=== PATIENT | female | born 1980 | race Caucasian/White ===

== ENCOUNTER 2023-02-15 18:46 | Emergency (ER) | payer MEDICAID ==
[~2023-02-15] VITALS: Ht 176.5 cm; Wt 72.4 kg
[~2023-02-15 18:46] MED LIST: AMIT-311 PO; POTA8TAB46 PO; PROM25TA14 PO
--- NOTE | 2023-02-15 19:30 | NUR ---
i AGREE WITH LVNS ASSESSMENT.
[2023-02-15 20:00] LABS: EOSINOPHILS # (AUTO) 0.4 X10'3 (0-0.9); HEMOGLOBIN 13.7 g/dl (12.0-16.0); MEAN PLATELET VOLUME 6.9 FL (7.4-10.4); RED CELL DISTRIBUTION WIDTH 12.5 % (11.5-14.5)
[2023-02-15 20:01] LABS: BASOPHILS # (AUTO) 0.1 X10'3 (0-0.2); BASOPHILS % (AUTO) 0.7 % (0-1); EOSINOPHILS % (AUTO) 4.2 % (0-6); HEMATOCRIT 40.1 % (35.0-45.0); LYMPHOCYTES # (AUTO) 2.1 X10'3 (1.1-4.8); LYMPHOCYTES % (AUTO) 24.3 % (21-51); MEAN CORPUSCULAR HEMOGLOBIN 32.5 PG (27.0-31.0); MEAN CORPUSCULAR HGB CONC 34.1 g/dL (33.0-36.5); MEAN CORPUSCULAR VOLUME 95.3 FL (78-98); MONOCYTES # (AUTO) 0.8 X10'3 (0-0.9); MONOCYTES % (AUTO) 8.9 % (2-12); NEUTROPHILS # (AUTO) 5.4 X10'3 (1.8-7.7); NEUTROPHILS % (AUTO) 61.9 % (42-75); PLATELET COUNT 467 X10'3 (140-440); WHITE BLOOD COUNT 8.7 X10'3 (4.5-11.0)
[2023-02-15 20:08] LABS: D-DIMER 0.29 MG/L FEU (0-0.50)
[2023-02-15 20:11] LABS: ALANINE AMINOTRANSFERASE 23 U/L (12-78); ALBUMIN 3.9 G/DL (3.4-5.0); ALBUMIN/GLOBULIN RATIO 1.1 (1.1-1.5); ALKALINE PHOSPHATASE 79 IU/L (46-116); ANION GAP 6 (8-16); ASPARTATE AMINO TRANSFERASE 17 U/L (10-37); BILIRUBIN,TOTAL 0.2 MG/DL (0.1-1.0); BLOOD UREA NITROGEN 9 MG/DL (7-18); BUN/CREATININE RATIO 10.8 (10.0-20.0); CALCIUM 8.7 MG/DL (8.5-10.1); CHLORIDE 103 MMOL/L (99-107); CREATININE 0.83 MG/DL (0.40-0.90); GLUCOSE 95 MG/DL (70-104); POTASSIUM 3.3 MMOL/L (3.5-5.1); SODIUM 138 MMOL/L (135-145); TOTAL CARBON DIOXIDE 28.7 MMOL/L (24-32); TOTAL PROTEIN 7.5 G/DL (6.4-8.2); eCRCL 96 ML/MIN; eGFR 76 ML/MIN
[2023-02-15 20:15] LABS: BILIRUBIN,URINE NEGATIVE (Neg); CLARITY,URINE SLIGHTLY CLOUDY (Clear); COLOR,URINE YELLOW (Yellow); GLUCOSE, URINE NEGATIVE (Neg); KETONES,URINE NEGATIVE (Neg); LEUKOCYTE ESTERASE ,URINE NEGATIVE (Neg); NITRITES, URINE NEGATIVE (Neg); OCCULT BLOOD,URINE SMALL (Neg); PROTEIN,URINE NEGATIVE (Neg); UROBILINOGEN,URINE 0.2 E.U/dL (0.2-1.0)
[2023-02-15] MEDS ORDERED: cyclobenzaprine 10mg tablet PO ONE (20:15)
[2023-02-15 20:18] LABS: PRO BRAIN NATRIURETIC PEPTIDE 266 PG/ML (0-125)
[2023-02-15] MEDS ORDERED: CYCL-1 PO ×2 (20:22)
[2023-02-15 20:29] LABS: UA COLLECTION TYPE NON-SPECIFIED
[2023-02-15 20:33] LABS: BACTERIA,URINE FEW /HPF (Neg); MUCUS STRANDS NONE SEEN /LPF (Neg); RBC,URINE 0-2 /HPF (0-2); SQUAMOUS EPITHELIAL CELL,UR MODERATE /LPF (FEW); WBC,URINE 0-4 /HPF (0-4)
[2023-02-15] MEDS ORDERED: potassium Cl 20 mEq SR tablet PO ONE (20:45)
[2023-02-15 21:02] VITALS: BP 138/78; PULSE 81; RESP 16; TEMP 99.4; O2SAT 100
== END 2023-02-15 21:43 | disposition home or self-care (01) ==
LOC: ER 18:47
DX: S29.012A Strain of muscle and tendon of back wall of thorax, initial encounter (principal); E87.6 Hypokalemia; Z88.0 Allergy status to penicillin; Z88.6 Allergy status to analgesic agent; Z88.2 Allergy status to sulfonamides; Z88.8 Allergy status to other drugs, medicaments and biological substances; Z79.899 Other long term (current) drug therapy; Z98.51 Tubal ligation status; X58.XXXA Exposure to other specified factors, initial encounter; Y93.89 Activity, other specified; Y92.89 Other specified places as the place of occurrence of the external cause; Y99.8 Other external cause status
CPT/HCPCS: 71045; 80053; 81001; 83880; 85025; 85379; 93005; 99285

== ENCOUNTER 2023-02-22 15:00 | Inpatient (IN) | payer MEDICAID ==
[~2023-02-22] VITALS: Ht 175.3 cm; Wt 70.5 kg
[~2023-02-22 15:00] MED LIST changes: +CYCL-1 PO
[2023-02-22 15:25] LABS: BASOPHILS # (AUTO) 0.1 X10'3 (0-0.2); BASOPHILS % (AUTO) 0.8 % (0-1); EOSINOPHILS # (AUTO) 0.4 X10'3 (0-0.9); EOSINOPHILS % (AUTO) 4.7 % (0-6); HEMATOCRIT 41.4 % (35.0-45.0); LYMPHOCYTES # (AUTO) 1.5 X10'3 (1.1-4.8); LYMPHOCYTES % (AUTO) 19.8 % (21-51); MEAN CORPUSCULAR HEMOGLOBIN 32.4 PG (27.0-31.0); MEAN CORPUSCULAR HGB CONC 33.7 g/dL (33.0-36.5); MEAN PLATELET VOLUME 7.1 FL (7.4-10.4); MONOCYTES # (AUTO) 0.5 X10'3 (0-0.9); MONOCYTES % (AUTO) 7.3 % (2-12); NEUTROPHILS % (AUTO) 67.4 % (42-75); PLATELET COUNT 442 X10'3 (140-440); RED BLOOD COUNT 4.32 X10'6 (4.20-5.60); RED CELL DISTRIBUTION WIDTH 12.5 % (11.5-14.5); WHITE BLOOD COUNT 7.5 X10'3 (4.5-11.0)
[2023-02-22 15:47] LABS: ALANINE AMINOTRANSFERASE 36 U/L (12-78); ALBUMIN 3.7 G/DL (3.4-5.0); ALKALINE PHOSPHATASE 93 IU/L (46-116); ANION GAP 3 (8-16); ASPARTATE AMINO TRANSFERASE 25 U/L (10-37); BILIRUBIN,TOTAL 0.4 MG/DL (0.1-1.0); BLOOD UREA NITROGEN 12 MG/DL (7-18); CALCIUM 9.1 MG/DL (8.5-10.1); CHLORIDE 105 MMOL/L (99-107); CREATININE 0.86 MG/DL (0.40-0.90); GLUCOSE 111 MG/DL (70-104); POTASSIUM 3.9 MMOL/L (3.5-5.1); PRO BRAIN NATRIURETIC PEPTIDE 351 PG/ML (0-125); SODIUM 137 MMOL/L (135-145); TOTAL CARBON DIOXIDE 28.6 MMOL/L (24-32); TOTAL PROTEIN 7.5 G/DL (6.4-8.2); eCRCL 91 ML/MIN; eGFR 73 ML/MIN
[2023-02-22] MEDS ORDERED: temazepam 15mg capsule PO PRN (21:00)
[2023-02-22] MEDS ORDERED: nitroGLYCERIN 0.4mg/hour patch TD ONE (21:30)
[2023-02-22 22:04] LABS: BASOPHILS # (AUTO) 0.1 X10'3 (0-0.2); BASOPHILS % (AUTO) 0.8 % (0-1); EOSINOPHILS # (AUTO) 0.3 X10'3 (0-0.9); HEMATOCRIT 39.3 % (35.0-45.0); HEMOGLOBIN 13.6 g/dl (12.0-16.0); LYMPHOCYTES # (AUTO) 2.3 X10'3 (1.1-4.8); LYMPHOCYTES % (AUTO) 22.5 % (21-51); MEAN CORPUSCULAR HEMOGLOBIN 32.7 PG (27.0-31.0); MEAN CORPUSCULAR HGB CONC 34.5 g/dL (33.0-36.5); MEAN CORPUSCULAR VOLUME 94.8 FL (78-98); MEAN PLATELET VOLUME 6.7 FL (7.4-10.4); MONOCYTES # (AUTO) 0.6 X10'3 (0-0.9); MONOCYTES % (AUTO) 6.1 % (2-12); NEUTROPHILS % (AUTO) 67.6 % (42-75); PLATELET COUNT 423 X10'3 (140-440); RED BLOOD COUNT 4.15 X10'6 (4.20-5.60); RED CELL DISTRIBUTION WIDTH 12.4 % (11.5-14.5); WHITE BLOOD COUNT 10.4 X10'3 (4.5-11.0)
--- NOTE | 2023-02-22 22:07 | NUR ---
Nitro patch applied to the L shoulder. Pt made aware to remove patch after 12 hrs.
[2023-02-22 22:11] LABS: D-DIMER 0.22 MG/L FEU (0-0.50)
[2023-02-22 22:20] LABS: ALANINE AMINOTRANSFERASE 38 U/L (12-78); ALBUMIN 3.7 G/DL (3.4-5.0); ALBUMIN/GLOBULIN RATIO 1.1 (1.1-1.5); ALKALINE PHOSPHATASE 84 IU/L (46-116); ANION GAP 5 (8-16); ASPARTATE AMINO TRANSFERASE 24 U/L (10-37); BILIRUBIN,TOTAL 0.4 MG/DL (0.1-1.0); BLOOD UREA NITROGEN 12 MG/DL (7-18); BUN/CREATININE RATIO 15.4 (10.0-20.0); CALCIUM 9.2 MG/DL (8.5-10.1); CHLORIDE 105 MMOL/L (99-107); CREATININE 0.78 MG/DL (0.40-0.90); GLUCOSE 106 MG/DL (70-104); POTASSIUM 3.8 MMOL/L (3.5-5.1); SODIUM 139 MMOL/L (135-145); TOTAL CARBON DIOXIDE 29.3 MMOL/L (24-32); TOTAL PROTEIN 7.2 G/DL (6.4-8.2); eCRCL 100 ML/MIN; eGFR 82 ML/MIN
[2023-02-22 22:24] LABS: MAGNESIUM 2.3 MG/DL (1.5-2.4); PRO BRAIN NATRIURETIC PEPTIDE 316 PG/ML (0-125)
[2023-02-22] MEDS ORDERED: ondansetron 4mg rapidly disintigrating tab PO PRN (22:25)
[2023-02-22] MEDS ORDERED: magnesium hydroxide 30ml (MOM) UD suspension PO PRN (22:25)
[2023-02-22] MEDS ORDERED: morphine 2 MG/ML inj. syringe IV PRN (22:25)
[2023-02-22] MEDS ORDERED: metoclopramide 5 mg/ml inj IV PRN (22:25)
[2023-02-22] MEDS ORDERED: diphenhydrAMINE 50 mg/ml inj IV PRN (22:25)
[2023-02-22] MEDS ORDERED: bisacodyl 10mg suppository rectal RC PRN (22:25)
[2023-02-22] MEDS ORDERED: mag hydrox/Alum hydrox/simeth 30ml oral suspension PO PRN (22:25)
[2023-02-22] MEDS ORDERED: ondansetron/PF 4mg/2ml inj IV PRN (22:25)
[2023-02-22] MEDS: normal saline 1000ml 1,000 ML IV SCH (22:25)
[2023-02-22] MEDS ORDERED: acetaminophen 325mg tablet PO PRN (22:25)
[2023-02-22] MEDS ORDERED: diphenhydrAMINE 25mg capsule PO PRN (22:25)
[2023-02-22] MEDS ORDERED: regadenoson 0.4mg/5ml syringe IV PRN (22:40)
[2023-02-22] MEDS ORDERED: nitroGLYCERIN 0.4mg SUBLingual tab SL PRN (22:40)
[2023-02-22] MEDS ORDERED: metoprolol tartrate 1mg/ml inj IV PRN (22:40)
[2023-02-22] MEDS ORDERED: aminophylline 250mg/10ml inj. IV PRN (22:40)
[2023-02-22 22:57] LABS: APTT 28 SECONDS (22-32); PROTHROMBIN TIME 10.7 SECONDS (9.0-12.0)
[2023-02-22 23:04] LABS: HEMOGLOBIN A1C 4.6 % (4.5-6.2)
[2023-02-22 23:07] LABS: ETHANOL < 10 MG/DL (<10); PHOSPHORUS 2.7 MG/DL (2.3-4.5); THYROID STIMULATING HORMONE 1.54 ulU/ml (0.34-4.50)
[2023-02-22 23:09] LABS: LIPASE 41 U/L (16-77)
[2023-02-22] MEDS: clopidogrel 75mg tablet PO SCH (23:28)
[2023-02-23] VITALS (8 sets, daily range): BP systolic 127–150; BP diastolic 74–96; PULSE 75–111; RESP 15–18; TEMP 98.7; O2SAT 99
[2023-02-23 00:02] LABS: URINE AMPHETAMINE SCREEN NEGATIVE (Neg); URINE BARBITUATE SCREEN NEGATIVE (Neg); URINE BENZODIAZEPINES SCREEN NEGATIVE (Neg); URINE CANNABINOID SCREEN POSITIVE (Neg); URINE COCAINE SCREEN NEGATIVE (Neg); URINE OPIATE SCREEN NEGATIVE (Neg); URINE PHENCYCLIDINE SCREEN NEGATIVE (Neg)
[2023-02-23] MEDS: HYDROcodone/acetaminophen 5mg/325mg tablet PO PRN ×2 (03:32→11:17)
[2023-02-23 04:13] LABS: BASOPHILS # (AUTO) 0.1 X10'3 (0-0.2); BASOPHILS % (AUTO) 0.7 % (0-1); EOSINOPHILS # (AUTO) 0.3 X10'3 (0-0.9); EOSINOPHILS % (AUTO) 3.4 % (0-6); HEMATOCRIT 34.9 % (35.0-45.0); HEMOGLOBIN 12.1 g/dl (12.0-16.0); LYMPHOCYTES # (AUTO) 2.2 X10'3 (1.1-4.8); LYMPHOCYTES % (AUTO) 25.2 % (21-51); MEAN CORPUSCULAR HEMOGLOBIN 32.7 PG (27.0-31.0); MEAN CORPUSCULAR HGB CONC 34.7 g/dL (33.0-36.5); MEAN CORPUSCULAR VOLUME 94.4 FL (78-98); MEAN PLATELET VOLUME 6.7 FL (7.4-10.4); MONOCYTES # (AUTO) 0.7 X10'3 (0-0.9); MONOCYTES % (AUTO) 8.1 % (2-12); NEUTROPHILS # (AUTO) 5.5 X10'3 (1.8-7.7); NEUTROPHILS % (AUTO) 62.6 % (42-75); PLATELET COUNT 373 X10'3 (140-440); RED CELL DISTRIBUTION WIDTH 12.4 % (11.5-14.5); WHITE BLOOD COUNT 8.8 X10'3 (4.5-11.0)
[2023-02-23 04:29] LABS: ALANINE AMINOTRANSFERASE 32 U/L (12-78); ALBUMIN 3.1 G/DL (3.4-5.0); ALKALINE PHOSPHATASE 69 IU/L (46-116); ANION GAP 6 (8-16); ASPARTATE AMINO TRANSFERASE 23 U/L (10-37); BILIRUBIN,TOTAL 0.4 MG/DL (0.1-1.0); BLOOD UREA NITROGEN 10 MG/DL (7-18); CALCIUM 8.3 MG/DL (8.5-10.1); CHLORIDE 105 MMOL/L (99-107); CHOL/HDL RATIO 2.6 (0.00-4.99); CHOLESTEROL 100 MG/DL (0-200); CREATININE 0.77 MG/DL (0.40-0.90); GLUCOSE 100 MG/DL (70-104); HDL CHOLESTEROL 38 MG/DL (35-60); LDL CHOLESTEROL 49 MG/DL (50-100); POTASSIUM 3.4 MMOL/L (3.5-5.1); SODIUM 139 MMOL/L (135-145); TOTAL CARBON DIOXIDE 28.4 MMOL/L (24-32); TOTAL PROTEIN 6.2 G/DL (6.4-8.2); TRIGLYCERIDES 49 MG/DL (20-135); eCRCL 102 ML/MIN; eGFR 83 ML/MIN
--- NOTE | 2023-02-23 07:01 | NUR ---
RECEIVED REPORT FROM GRECIA STEVENS AT 0630 ASSUMED CARE OF PT NITRO PATCH REMOVED D/T PT SCHEDULED FOR STRESS TEST THIS AM PT CONTINUES TO C/O OF [place] BEHIND R EYE AND BASE OF SKULL 11/13 LUPE GAVE SOME RELIEF PLAN OF CARE DISCUSSED W PT ALL QUESTIONS AND CONCERNS ADDRESSED TO PT'S VERBAL SATISFACTION
[2023-02-23] MEDS ORDERED: pantoprazole 40mg Tablet.DR PO SCH ×2 (07:30)
[2023-02-23] MEDS: clopidogrel 75mg tablet PO SCH (07:40)
[2023-02-23] MEDS ORDERED: docusate sod 100mg capsule PO SCH (08:00)
[2023-02-23] MEDS ORDERED: nitroGLYCERIN 0.1mg/hour patch TD SCH (08:00)
[2023-02-23] MEDS ORDERED: heparin, porcine 5000 units/ml vial SQ SCH (08:00)
--- NOTE | 2023-02-23 09:27 | NUR ---
PT TO NUC MED ON MONITOR WITH RN FOR STRESS TEST, PT ABLE TO TRANSFER SELF WITHOUT ASSIST.
[2023-02-23] MEDS ORDERED: VALS80TA32 PO (10:04)
[2023-02-23] MEDS ORDERED: ATOR20TA PO (10:04)
[2023-02-23] MEDS ORDERED: AMLO2.5T2 PO (10:04)
[2023-02-23] MEDS ORDERED: METO-384 PO (10:04)
[2023-02-23] MEDS ORDERED: AMIT50TA15 PO (10:04)
[2023-02-23] MEDS ORDERED: POTA8TAB69 PO (10:05)
--- NOTE | 2023-02-23 10:44 | NUR ---
pt back to room 10 from nuc med stress test, report to Danielle STEVENS
--- NOTE | 2023-02-23 10:44 | NUR ---
pt returned from stress test via gurney tolerated procedure well
[2023-02-23] MEDS: normal saline 1000ml 1,000 ML IV SCH ×2 (11:15→11:18)
--- NOTE | 2023-02-23 11:43 | NUR ---
PAGER ID: [phone] MESSAGE: Dylon Bro T in ER rm 10 1. stress test results are back. 2. med rec is complete. Erika hills
== END 2023-02-23 16:40 | disposition home or self-care (01) | DRG 198 ==
LOC: ER 15:01 → ED HOLD 22:29
PROVIDERS: ADMIT Family Medicine; ATTEND Internal Medicine
PROC: 4A02XM4 Measurement of Cardiac Total Activity, External Approach (ICD-10-PCS; principal; 2023-02-23)
PROC: 3E033HZ Introduction of Radioactive Substance into Peripheral Vein, Percutaneous Approach (ICD-10-PCS; 2023-02-23)
DX: I20.0 Unstable angina (principal); I11.0 Hypertensive heart disease with heart failure; I50.32 Chronic diastolic (congestive) heart failure; E78.5 Hyperlipidemia, unspecified; F17.210 Nicotine dependence, cigarettes, uncomplicated; Z88.0 Allergy status to penicillin; Z88.2 Allergy status to sulfonamides; Z88.6 Allergy status to analgesic agent; Z88.3 Allergy status to other anti-infective agents; Z98.51 Tubal ligation status
CPT/HCPCS: 36415; 71045; 78452; 80053; 80061; 80305; 80320; 83036; 83690; 83735; 83880; 84100; 84443; 84484; 85025; 85379; 85610; 85730; 93017; 99285; A9500; G0378; J1644; J2270; J2785; J7030

== ENCOUNTER 2024-06-19 19:20 | Emergency (ER) | payer MEDICAID ==
[~2024-06-19] VITALS: Ht 175.3 cm; Wt 68.5 kg
[~2024-06-19 19:20] MED LIST changes: -AMIT-311 PO; +AMIT50TA15 PO; +AMLO2.5T2 PO; +ATOR20TA PO; -CYCL-1 PO; +METO-384 PO; -POTA8TAB46 PO; +POTA8TAB69 PO; -PROM25TA14 PO; +VALS80TA32 PO
[2024-06-19 19:29] VITALS: TEMP 98.8
[2024-06-19 20:06] LABS: BASOPHILS # (AUTO) 0.1 X10'3 (0-0.2); BASOPHILS % (AUTO) 0.3 % (0-1); EOSINOPHILS # (AUTO) 0.2 X10'3 (0-0.9); HEMATOCRIT 40.6 % (35.0-45.0); HEMOGLOBIN 14.2 g/dl (12.0-16.0); LYMPHOCYTES # (AUTO) 1.1 X10'3 (1.1-4.8); MEAN CORPUSCULAR HEMOGLOBIN 33.7 PG (27.0-31.0); MEAN CORPUSCULAR VOLUME 96.4 FL (78-98); MEAN PLATELET VOLUME 6.7 FL (7.4-10.4); MONOCYTES # (AUTO) 1.2 X10'3 (0-0.9); MONOCYTES % (AUTO) 5.7 % (2-12); NEUTROPHILS # (AUTO) 18.6 X10'3 (1.8-7.7); PLATELET COUNT 424 X10'3 (140-440); RED BLOOD COUNT 4.21 X10'6 (4.20-5.60); RED CELL DISTRIBUTION WIDTH 12.8 % (11.5-14.5); WHITE BLOOD COUNT 21.1 X10'3 (4.5-11.0)
[2024-06-19 20:08] LABS: URINE HCG NEGATIVE (NEG)
[2024-06-19 20:10] LABS: BILIRUBIN,URINE NEGATIVE (Neg); CLARITY,URINE CLEAR (Clear); COLOR,URINE YELLOW (Yellow); GLUCOSE, URINE NEGATIVE (Neg); KETONES,URINE NEGATIVE (Neg); LEUKOCYTE ESTERASE ,URINE NEGATIVE (Neg); NITRITES, URINE NEGATIVE (Neg); OCCULT BLOOD,URINE TRACE-INTACT (Neg); PH,URINE 6.5 (4.8-8.0); PROTEIN,URINE NEGATIVE (Neg); UROBILINOGEN,URINE 0.2 E.U/dL (0.2-1.0)
[2024-06-19 20:22] LABS: ALANINE AMINOTRANSFERASE 33 U/L (12-78); ALBUMIN 3.9 G/DL (3.4-5.0); ALKALINE PHOSPHATASE 79 IU/L (46-116); ANION GAP 7 (8-16); ASPARTATE AMINO TRANSFERASE 19 U/L (10-37); BILIRUBIN,TOTAL 0.5 MG/DL (0.1-1.0); BLOOD UREA NITROGEN 15 MG/DL (7-18); CHLORIDE 104 MMOL/L (99-107); CREATININE 0.75 MG/DL (0.40-0.90); GLUCOSE 108 MG/DL (70-104); LIPASE 34 U/L (16-77); POTASSIUM 3.4 MMOL/L (3.5-5.1); SODIUM 140 MMOL/L (135-145); TOTAL CARBON DIOXIDE 29.1 MMOL/L (24-32); TOTAL PROTEIN 7.8 G/DL (6.4-8.2); eCRCL 103 ML/MIN; eGFR 85 ML/MIN
[2024-06-19 20:24] LABS: UA COLLECTION TYPE CLN CATCH MIDSTREAM
[2024-06-19 20:25] LABS: AMORPHOUS URATES 1+; BACTERIA,URINE 1+ /HPF (Neg); RBC,URINE 0-2 /HPF (0-2); SQUAMOUS EPITHELIAL CELL,UR MODERATE /LPF (FEW); WBC,URINE 0-4 /HPF (0-4)
[2024-06-19] MEDS: normal saline 1000ml 1,000 ML IV ONE (22:36)
[2024-06-19] MEDS: morphine 4 MG/ML inj SYRINge IV ONE (22:36)
[2024-06-19] MEDS: ondansetron/PF 4mg/2ml inj IV ONE (22:36)
[2024-06-19] MEDS: proCHLORperazine 10 MG/2 ml inj IV ONE (23:49)
[2024-06-19] MEDS: diphenhydrAMINE 50 mg/ml inj IV ONE (23:50)
[2024-06-20] MEDS: morphine 4 MG/ML inj SYRINge IV ONE (00:31)
[2024-06-20] MEDS ORDERED: ONDA-245 PO (02:11)
[2024-06-20] MEDS ORDERED: HYDR-3965 PO (02:11)
[2024-06-20 02:19] VITALS: BP 147/93; PULSE 76; RESP 16; O2SAT 99
== END 2024-06-20 02:20 | disposition home or self-care (01) ==
LOC: ER 19:20
DX: R10.11 Right upper quadrant pain (principal); I10 Essential (primary) hypertension; Z88.0 Allergy status to penicillin; Z88.6 Allergy status to analgesic agent; Z88.2 Allergy status to sulfonamides; Z88.8 Allergy status to other drugs, medicaments and biological substances; Z98.51 Tubal ligation status; Z79.899 Other long term (current) drug therapy
CPT/HCPCS: 36415; 74176; 76700; 80053; 81001; 81025; 83690; 84145; 85025; 93005; 96361; 96374; 96375; 96376; 99285; J0780; J1200; J2270; J2405; J7030

== ENCOUNTER 2024-12-24 17:04 | Emergency (ER) | payer MEDICARE, MEDICAID ==
[~2024-12-24] VITALS: Ht 175.3 cm; Wt 65.1 kg
[~2024-12-24 17:04] MED LIST changes: +ONDA-245 PO
[2024-12-24 17:13] VITALS: TEMP 97.6
[2024-12-24 18:18] LABS: MEAN PLATELET VOLUME 6.7 FL (7.4-10.4); RED CELL DISTRIBUTION WIDTH 12.8 % (11.5-14.5)
[2024-12-24 18:34] LABS: CREATININE 0.79 MG/DL (0.40-0.90); TOTAL CARBON DIOXIDE 31.8 MMOL/L (24-32); eCRCL 95 ML/MIN; eGFR 80 ML/MIN
[2024-12-24 19:23] LABS: URINE HCG NEGATIVE (NEG)
[2024-12-24 19:31] LABS: LEUKOCYTE ESTERASE ,URINE NEGATIVE (Neg); NITRITES, URINE NEGATIVE (Neg); OCCULT BLOOD,URINE SMALL (Neg)
[2024-12-24 19:35] LABS: UA COLLECTION TYPE CLN CATCH MIDSTREAM
[2024-12-24 19:48] LABS: MUCUS STRANDS MODERATE /LPF (Neg); SQUAMOUS EPITHELIAL CELL,UR FEW /LPF (FEW)
--- NOTE | 2024-12-24 19:54 | RADIOLOGY REPORT ---
EXAM: US ULTRASOUND OF ABDOMEN HISTORY: Abdominal pain, persistent lower abdominal cramping COMPARISON: CT CT ABDOMEN PELVIS on DOS: 06/20/24, US ULTRASOUND OF ABDOMEN on DOS: 06/19/24 TECHNIQUE: Real-time grayscale and color flow images of the abdomen were obtained. FINDINGS: LIVER: Liver measures 17.2 cm craniocaudal. Liver parenchyma is homogeneous in echotexture. No focal lesion is identified. No intrahepatic ductal dilatation. Normal directional flow is seen in the por sylvester vein. GALLBLADDER: No gallstones. No gallbladder wall edema or pericholecystic fluid. Gallbladder wall thi ckness is 2 mm. No sonographic banegas sign. COMMON BILE DUCT: 3 mm in caliber. SPLEEN: The spleen measures 10.3 cm. No focal lesion is identified. PANCREAS: Visualized portions are unremarkable. KIDNEYS: The right kidney measures 10.1 cm in length. The left kidney measures 11.4 cm in lengt h. No hydronephrosis noted bilaterally. No suspicious renal lesions. No sonographic evidence of ca lculi. AORTA, IVC: Visualized portions are unremarkable. OTHER: None. IMPRESSION: 1. No acute sonographic abnormality identified.
--- NOTE | 2024-12-24 19:58 | RADIOLOGY REPORT ---
Procedure: US ULTRASOUND PELVIS W/ORWO DPLX [facility] Study Date and Requested Time: 12/24/2024 07:00 PM Study Description: US ULTRASOUND PELVIS W/ORWO DPLX History: pain, persistent lower abdominal cramping Comparison: CT CT ABDOMEN PELVIS on DOS: 06/20/24, US ULTRASOUND OF ABDOMEN on DOS: 06/19/24 Technique: Multiple transabdominal and transvaginal high resolution de leon-scale images obtained of the uterus and adnexa with color Doppler for evaluation of adnexal blood flow and vascularity as indicat ed. Findings: Uterus measures 6.5 x 4.3 x 5.3 cm, with homogeneous echotexture. Endometrium within normal limits, m easuring 1 cm in thickness with smooth contour. Cervix is not well-visualized. Right ovary measures 2.2 x 1.2 x 2 cm. Left ovary measures by 2.1 x 2.2 cm with a 1.6 cm dominant fol licle. Normal ovarian color Doppler flow bilaterally. No evidence of cystic or solid ovarian lesions. Small amount of free fluid within the cul-de-sac. Impression: Small amount of free fluid within the cul-de-sac which may be physiologic. Endometrial thickness of 1 cm which is within normal limits for premenopausal state.
--- NOTE | 2024-12-24 20:03 | Physician Documentation ---
History of Present Illness ~ Chief Complaint: Abdominal Pain Stated Complaint: ABD PAIN Time Seen by MD: 19:09 Primary Medical Doctor: MIRIAN LEWIS HPI Patient presents to the emergency room with left lower quadrant abdominal pain. Patient has history of Crohn's in intermittent abdominal pain. No fevers. Bowel movements reported to be normal. Took some Tylenol for her pain. She has had a prior appendix taken out Medication Reconciliation Allergies: Coded Allergies: octreotide (Verified Allergy, Severe, 12/24/24) aspirin (Verified Allergy, Unknown, 07/18/14) pyridostigmine (Verified Allergy, Unknown, 07/18/14) Scheduled Amitriptyline Hcl* (Elavil*), 2 TAB PO HS, (Reported) Amlodipine* (Norvasc*), 2 TAB PO HS, (Reported) Atorvastatin Calcium* (Lipitor*), 1 TABLET PO HS, (Reported) Metoprolol Succinate (Metoprolol Succinate), 1 TAB PO DAILY, (Reported) Ondansetron 8mg ODT (Ondansetron Odt), 1 TAB PO Q6H Potassium Chloride (Klor-Con 8), 1 TAB PO DAILY, (Reported) Valsartan (Valsartan), 1 TAB PO DAILY, (Reported) Past Medical History Past Medical History: Hypertension, Inflammatory Bowel Dz, Pancreatitis Past Surgical History: tubal ligation Alcohol Use: None Drug Use: none Lives with: Family Lives In: Home Occupation: employed Review of Systems ROS All review of systems negative except as per HPI Physical Exam Vital Signs: Temperature: 97.6, Source: Temporal, Heart Rate: 64, Respiratory Rate: 16, BP: 139/104, Pulse Oximetry: 96, Weight: 65.140 Oxygen Flow Rate: 0 Physical Exam General: Patient is awake, alert, oriented x4 in no acute distress Head: Normocephalic and atraumatic. Eyes: Conjunctival normal. EOMI. PERRL. ENT: Mucous membranes moist. Neck: Supple, trachea is midline. Chest: Clear to auscultation bilaterally without rales, rhonchi, or wheezes. There is no accessory muscle use or retractions. Cardiac: RRR without murmurs, gallops, or rubs. Abd: Soft, nondistended, nontender, with normoactive bowel sounds. No guarding, rebound, or rigidity. Progress Results/Orders Results/Orders Vital Signs 12/24/24 12/24/24 17:13 18:38 Temp 97.6 Pulse 94 64 Resp 18 16 B/P (MAP) 143/104 139/104 (116) Pulse Ox 99 96 O2 Flow Rate 0 Laboratory Tests Test 12/24/24 18:07 12/24/24 18:29 White Blood Count 6.8 Red Blood Count 3.86 L Hemoglobin 12.7 Hematocrit 36.3 Mean Corpuscular Volume 94.1 Mean Corpuscular Hemoglobin 32.9 H Mean Corpuscular Hemoglobin Concent 35.0 Red Cell Distribution Width 12.8 Platelet Count 374 Mean Platelet Volume 6.7 L Neutrophils (%) (Auto) 66.7 Lymphocytes (%) (Auto) 20.1 L Monocytes (%) (Auto) 8.9 Eosinophils (%) (Auto) 3.3 Basophils (%) (Auto) 1.0 Neutrophils # (Auto) 4.5 Lymphocytes # (Auto) 1.4 Monocytes # (Auto) 0.6 Eosinophils # (Auto) 0.2 Basophils # (Auto) 0.1 CBC Comment Sodium Level 143 Potassium Level 3.5 Chloride Level 106 Carbon Dioxide Level 31.8 Anion Gap 5 L Blood Urea Nitrogen 9 Creatinine 0.79 Estimated GFR/1.73 m2 80 BUN/Creatinine Ratio 11.4 Glucose Level 72 Calcium Level 8.5 Total Bilirubin 0.3 Aspartate Amino Transf (AST/SGOT) 15 Alanine Aminotransferase (ALT/SGPT) 23 Alkaline Phosphatase 78 Total Protein 7.0 Albumin 3.6 Globulin 3.4 Albumin/Globulin Ratio 1.1 Lipase 52 Chemistry Comments Urine Specimen Description Cln catch midstream Urine Color Yellow Urine Clarity Clear Urine pH 6.5 Urine Specific [place] 1.020 Urine Protein Negative Urine Glucose (UA) Negative Urine Ketones Negative Urine Occult Blood Small Urine Nitrite Negative Urine Bilirubin Negative Urine Urobilinogen 0.2 Urine Leukocyte Esterase Negative Urine RBC 3-10 Urine WBC None seen Urine Squamous Epithelial Cells Few Urine Bacteria 1+ Urine Mucus Moderate Urine Culture Indicated Not ind Volume Urine Centrifuged 10 ml Urine HCG, Qualitative Negative Urine Comment Medical Decision Making Findings Patient presents to the emergency room for evaluation of abdominal pain. Differentials include but are not limited to cholecystitis pancreatitis kidney stone appendicitis diverticulitis therefore emergent labs and imaging ordered. Ultrasound is reassuring for no cholecystitis but does show trace pelvic fluid possibly secondary to ruptured cyst. Patient's pain is controlled. Labs were reassuring. Given risks versus benefits I do not feel patient requires a CT scan at this time as I believe the radiation risk outweighs any benefit. ER precautions discussed Departure Disposition: HOME / SELF CARE / HOMELESS Impression: Primary Impression: Abdominal pain Condition: Stable Discharge Instructions: Abdominal Pain (Nonspecific) Referrals: NO PRIMARY CARE PROVIDER (PCP) Signature Scribe Signature: No scribe Attestation: The note accurately reflects work and decisions made by me.Joaquín Driver MD 12/24/24 20:11 JOAQUÍN DRIVER MD Dec 24, 2024 20:03
[2024-12-24 20:17] VITALS: BP 136/98; PULSE 68; RESP 16; O2SAT 97
== END 2024-12-24 20:23 | disposition home or self-care (01) ==
LOC: ER 17:05
DX: R10.32 Left lower quadrant pain (principal); I10 Essential (primary) hypertension; Z98.51 Tubal ligation status; Z88.6 Allergy status to analgesic agent; Z88.8 Allergy status to other drugs, medicaments and biological substances; Z79.899 Other long term (current) drug therapy
CPT/HCPCS: 36415; 76700; 76856; 80053; 81001; 81025; 83690; 85025; 93976; 99284